=== PATIENT | female | born 1945 | race Caucasian/White ===

== ENCOUNTER 2017-07-25 20:18 | Observation (INO) | payer BC, OTHER ==
[~2017-07-25] VITALS: Ht 170.2 cm; Wt 85.3 kg
[~2017-07-25 20:18] MED LIST: ADULT LOW DOSE81 M1 PO; ASPIRIN325 MG PO; CITRACAL + D C1 EACH PO; CO Q-10400 MG PO; EVISTA60 MG PO; FLEXERIL10 MG PO; FOLIC ACID0.4 MG PO; GLUCOSAMINE &1 EACH PO; LIPITOR20 MG PO; OMEGA 3 1,0001 EACH PO; PRILOSEC40 MG PO; SYNTHROID25 MCG PO; VESICARE5 MG PO; VITAMIN B12-FO1 EACH SL; VITAMIN C500 M5 PO; VITAMIN D31000 UNIT PO; ZESTRIL,PRINIVI20 MG PO
[2017-07-25 21:12] LABS: HEMATOCRIT 41.5 % (36.0-46.0); MCH 31.9 PG (29.0-34.0); MCV 96.5 FL (83-99); MEAN PLAT.VOLUME 10.9 uM^3 (9.5-12.4); PLATELET COUNT 191 K/uL (156-360); RBC DIS.WIDTH-CV 12.2 % (11.8-14.6); RBC DIS.WIDTH-SD 43.7 % (39-53); WHITE BLOOD COUNT 8.2 K/uL (4.1-10.2)
[2017-07-25 21:16] LABS: ADD MIUA? YES; BILIRUBIN NEGATIVE; BLOOD NEGATIVE; COLOR STRAW ((YELLOW)); GLUCOSE (STRIP) NEGATIVE; KETONES NEGATIVE; LEUKOCYTES NEGATIVE; NITRITE NEGATIVE; PROTEIN (STRIP) NEGATIVE; UROBILINOGEN 0.2 MG/DL (0.2-1.0)
[2017-07-25 21:21] LABS: CHLORIDE 109 mEq/L (99-109); POTASSIUM 3.9 mEq/L (3.7-5.4); SODIUM 145 mEq/L (136-147)
[2017-07-25 21:22] LABS: BACTERIA RARE /HPF; CALCIUM OXALATE CRYSTALS 1+ /HPF; EPITHELIAL CELLS RARE /HPF; MUCUS TRACE /LPF; RED BLOOD CELLS 0-5 /HPF (0-5); WHITE BLOOD CELLS 0-5 /HPF (0-5)
[2017-07-25 21:22] LABS: GLUCOSE 113 mg/dL (70-99)
[2017-07-25 21:24] LABS: ANION GAP 10 MEQ/L (2-14)
[2017-07-25 21:26] LABS: GFR ESTIMATE (CALCULATED) > 59 mL/min/
[2017-07-25 21:27] LABS: UREA NITROGEN (BUN) 12 mg/dL (9-23)
[2017-07-26 02:10] LABS: TOTAL BILIRUBIN 0.5 mg/dL (0.0-1.0)
[2017-07-26 02:11] LABS: ALKALINE PHOSPHATASE 59 IU/L (3-129)
[2017-07-26 02:13] LABS: DIRECT BILIRUBIN 0.2 mg/dL (0.0-0.3)
[2017-07-26 02:45] LABS: HDL CHOLESTEROL 44 MG/DL (Desirable>=50); LDL CHOLESTEROL 125 mg/dL (Desirable<100); NON-HDL CHOLESTEROL 166 mg/dL (Desirable<160); TOTAL CHOLESTEROL 210 mg/dL (Desirable<200); TRIGLYCERIDES 204 MG/DL (Normal: <150)
[2017-07-26 03:02] VITALS: BP 156/71
[2017-07-26] MEDS ORDERED: ATORVASTATIN CA10 MG PO (03:21)
[2017-07-26] MEDS ORDERED: FOLIC ACID1 MG PO (03:43)
[2017-07-26] MEDS ORDERED: CYANOCOBAL1000 MCG/2 IM (03:46)
[2017-07-26] MEDS ORDERED: MYRBETRIQ50 MG PO (03:47)
[2017-07-26] MEDS ORDERED: OSTEO BI-FLEX1 EAC1 PO (03:48)
[2017-07-26 06:30] VITALS: BP 122/73
[2017-07-26 07:21] LABS: Estimated Average Glucose 108 mg/dL (70-123); HEMOGLOBIN A1c (GLYCOHEMOGLOB) 5.4 % HGB (Below 5.7)
[2017-07-26] MEDS ORDERED: AMPYRA10 MG PO (11:39)
[2017-07-26 11:40] VITALS: BP 130/78
[2017-07-26] MEDS ORDERED: LISINOPRIL40 MG PO (11:40)
[2017-07-26] MEDS ORDERED: OMEPRAZOLE40 M1 PO (11:41)
== END 2017-07-26 13:51 | disposition home or self-care (01) ==
LOC: EXP 20:18 → EME 20:18 → EDOF 07-26 01:22 → ENRESERV 07-26 01:31 → 5WEST 07-26 02:28
PROVIDERS: Hospitalist
DX: G35 Multiple sclerosis (principal); M21.372 Foot drop, left foot; R42 Dizziness and giddiness; R11.2 Nausea with vomiting, unspecified; R51 Headache; I10 Essential (primary) hypertension; E78.5 Hyperlipidemia, unspecified; E03.9 Hypothyroidism, unspecified; Z79.82 Long term (current) use of aspirin
CPT/HCPCS: 70450; 70551; 80048; 80061; 80076; 81003; 83036; 85027; 93005; 99281; 99285; G0378; J1650

== ENCOUNTER 2017-09-29 17:34 | Emergency (ER) | payer BC, OTHER ==
[~2017-09-29] VITALS: Ht 170.2 cm; Wt 88.3 kg
[~2017-09-29 17:34] MED LIST changes: +AMPYRA10 MG PO; +ATORVASTATIN CA10 MG PO; +CYANOCOBAL1000 MCG/2 IM; +FOLIC ACID1 MG PO; +LISINOPRIL40 MG PO; +MYRBETRIQ50 MG PO; +OMEPRAZOLE40 M1 PO; +OSTEO BI-FLEX1 EAC1 PO
[2017-09-29 18:11] LABS: HEMATOCRIT 39.1 % (36.0-46.0); MCH 32.5 PG (29.0-34.0); MCHC 33.8 G/DL (30.0-36.0); MCV 96.3 FL (83-99); MEAN PLAT.VOLUME 10.5 uM^3 (9.5-12.4); PLATELET COUNT 189 K/uL (156-360); RBC DIS.WIDTH-CV 12.6 % (11.8-14.6); RBC DIS.WIDTH-SD 44.7 % (39-53); RED BLOOD COUNT 4.06 M/uL (3.80-5.20); WHITE BLOOD COUNT 4.8 K/uL (4.1-10.2)
[2017-09-29 18:20] LABS: CHLORIDE 111 mEq/L (99-109); POTASSIUM 3.4 mEq/L (3.7-5.4); SODIUM 144 mEq/L (136-147)
[2017-09-29 18:21] LABS: GLUCOSE 102 mg/dL (70-99)
[2017-09-29 18:23] LABS: ANION GAP 9 MEQ/L (2-14)
[2017-09-29 18:25] LABS: GFR ESTIMATE (CALCULATED) > 59 mL/min/
[2017-09-29 18:26] LABS: UREA NITROGEN (BUN) 18 mg/dL (9-23)
[2017-09-29] MEDS ORDERED: KEFLEX500 MG PO (20:29)
[2017-09-29 21:04] VITALS: BP 157/88
== END 2017-09-29 21:05 | disposition home or self-care (01) ==
LOC: EME 17:34
PROVIDERS: Nurse Practitioner Family
DX: L03.116 Cellulitis of left lower limb (principal); G35 Multiple sclerosis; Z79.82 Long term (current) use of aspirin
CPT/HCPCS: 80048; 85027; 93971; 99281; 99284